=== PATIENT | male | born 1955 | race Caucasian/White ===

== ENCOUNTER 2017-04-16 08:50 | Emergency (ER) | payer OTHER ==
[2017-04-16 09:00] VITALS: RESP 16
--- NOTE | 2017-04-16 09:26 | EDPHY ---
H & P Time Seen by Provider: 04/16/17 09:01 HPI/ROS: Chief complaint. Vertigo HPI. 62-year-old male presents emergency department episodes of dizziness since February. He describes occasional spinning and sense of worse with movement of his head. Occasional nausea vomiting. He has had over the past month several episodes of this while in bed. He works as a [employer] and on Tuesday was under a piano an twisted and felt that his neck got quite tight. He had a chiropractic adjustment 2 days ago. This morning rolled over in bed and had dizziness that is worse with head position eyes open. His neck still feels tight. No headache. He is legally blind in his right eye. His mom had a brain tumor is concerned about this. ROS Constitutional. no fever/chills, no weakness Eyes. no problems with vision ENT. no sore throat, no nasal drainage Cardiovascular. no chest pain Respiratory. no shortness of breath, no cough Abdominal. no abdominal pain, no nausea/vomiting, no diarrhea . no problems urinating MS. neck tightness Skin. no rash Lymph. no swollen glands Neuro. Dizziness Past Medical/Surgical History: Healthy Social History: , nonsmoker, no alcohol Smoking Status: Never smoked Physical Exam: General Appearance: Alert well-developed male mild distress vitals are stable Eyes: Pupils equal round reactive. No nystagmus. ENT, tympanic membranes normal. Pharynx normal Respiratory: There are no retractions, lungs are clear to auscultation. Cardiovascular: Regular rate and rhythm. Gastrointestinal: Abdomen is soft and nontender, no masses, bowel sounds normal. Neurological: Awake and alert, sensory and motor exams grossly normal. Skin: Warm and dry, no rashes. Musculoskeletal: Neck is supple nontender. Extremities symmetrical, full range of motion. Psychiatric: Patient is oriented X 3, there is no agitation. Constitutional: Initial Vital Signs Temperature (C) 36.6 C 04/16/17 08:55 Heart Rate 85 04/16/17 08:55 Respiratory Rate 16 04/16/17 08:55 Blood Pressure 155/98 H 04/16/17 08:55 O2 Sat (%) 97 04/16/17 08:55 O2 Delivery Mode Room Air Allergies/Adverse Reactions: No Known Allergies Allergy (Unverified 04/16/17 09:00) Home Medications: Medication Instructions Recorded Meclizine HCl [Meclizine HCl 25 mg 25 mg PO TID PRN #14 tab 04/16/17 (RX,OTC)] Medical Decision Making - Diagnostics Imaging Results: Imaging Impressions Head CT 04/16/17 09:50 Impression: 1. No significant intracranial abnormality seen. Head CT shows no evidence of bleeding or tumor. CT angiogram of head and neck reviewed by me and discussed with Dr. Hilario shows no dissection or abnormality Procedures: IV normal saline. Meclizine by mouth ED Course/Re-evaluation: Re-evaluation 12:40 p.m.. Patient is stable. His symptoms have resolved. He is neurologically intact. The patient, his , and I discussed discussed lab , EKG, imaging results. We discussed treatment plan including criteria for return and importance of follow-up and further evaluation. They expressed understanding and agreement Differential Diagnosis: This appears to be peripheral vertigo. He has had chiropractic manipulation with some neck discomfort and I considered carotid and vertebral artery dissections. I considered CVA as well. - Data Points Laboratory Results: Laboratory Results 04/16/17 10:03 04/16/17 10:03 04/16/17 04/16/17 04/16/17 10:03 10:03 10:03 WBC 4.03 10^3/uL 10^3/uL (3.80-9.50) RBC 5.41 10^6/uL 10^6/uL (4.40-6.38) Hgb 16.7 g/dL g/dL (13.7-17.5) Hct 47.0 % % (40.0-51.0) MCV 86.9 fL fL (81.5-99.8) MCH 30.9 pg pg (27.9-34.1) MCHC 35.5 g/dL g/dL (32.4-36.7) RDW 13.1 % % (11.5-15.2) Plt Count 180 10^3/uL 10^3/uL (150-400) MPV 9.0 fL fL (8.7-11.7) Neut % (Auto) 59.4 % % (39.3-74.2) Lymph % (Auto) 29.3 % % (15.0-45.0) [place] % (Auto) 8.4 % % (4.5-13.0) Eos % (Auto) 1.5 % % (0.6-7.6) Baso % (Auto) 1.2 % % (0.3-1.7) Nucleat RBC Rel Count 0.0 % % (0.0-0.2) Absolute Neuts (auto) 2.39 10^3/uL 10^3/uL (1.70-6.50) Absolute Lymphs (auto) 1.18 10^3/uL 10^3/uL (1.00-3.00) Absolute Monos (auto) 0.34 10^3/uL 10^3/uL (0.30-0.80) Absolute Eos (auto) 0.06 10^3/uL 10^3/uL (0.03-0.40) Absolute Basos (auto) 0.05 10^3/uL 10^3/uL (0.02-0.10) Absolute Nucleated RBC 0.00 10^3/uL 10^3/uL (0-0.01) Immature Gran % 0.2 % % (0.0-1.1) Immature Gran # 0.01 10^3/uL 10^3/uL (0.00-0.10) PT 13.7 SEC SEC (12.0-15.0) INR 1.06 (0.83-1.16) Sodium 140 mEq/L mEq/L (134-144) Potassium 4.2 mEq/L mEq/L (3.5-5.2) Chloride 109 mEq/L mEq/L (97-110) Carbon Dioxide 20 mEq/l L mEq/l (22-31) Anion Gap 11 mEq/L mEq/L (8-16) BUN 18 mg/dL mg/dL (7-23) Creatinine 0.8 mg/dL mg/dL (0.7-1.3) Estimated GFR > 60 Glucose 96 mg/dL mg/dL (70-100) Calcium 9.1 mg/dL mg/dL (8.5-10.4) Troponin I < 0.012 ng/mL ng/mL (0.000-0.034) Medications Given: Discontinued Medications Sodium Chloride (Ns) 1,000 mls @ 0 mls/hr IV ONCE ONE; Wide Open PRN Reason: Protocol Stop: 04/16/17 09:50 Last Admin: 04/16/17 10:16 Dose: 1,000 mls Meclizine HCl (Meclizine Hcl) 25 mg PO EDNOW ONE Stop: 04/16/17 09:52 Last Admin: 04/16/17 10:16 Dose: 25 mg Departure - Departure Disposition: Home, Routine, Self-Care Clinical Impression: Vertigo Condition: Good Instructions: Vertigo (ED) Additional Instructions: Meclizine as needed for dizziness. You may review the Eppley maneuver on Youtube to help with vertigo. Return for worsening symptoms. Follow up with ENT. Referrals: Alonso العراقي MD [Primary Care Provider] - As per Instructions Macarena Santo MD [Medical Doctor] - 2-3 days, call for appt. Prescriptions: Meclizine HCl [Meclizine HCl 25 mg (RX,OTC)] 25 mg PO TID PRN #14 tab PRN Reason: Dizziness
[2017-04-16] MEDS ORDERED: NS 1,000 ML IV ONE (09:49)
[2017-04-16] MEDS ORDERED: MECLIZINE HCL 25 MG TAB PO ONE (09:51)
--- NOTE | 2017-04-16 10:20 | CPEKG ---
Heart Rate: 68 RR Interval: 882 P-R Interval: 200 QRSD Interval: 82 QT Interval: 380 QTC Interval: 405 P [place]: -12 QRS [place]: 7 T Wave [place]: 18 EKG Severity - NORMAL ECG - EKG Impression: SINUS RHYTHM Electronically Signed By: Farhad Underwood 16-Apr-2017 15:15:50
--- NOTE | 2017-04-16 10:20 | CPEKG ---
Heart Rate: 68 RR Interval: 882 P-R Interval: 200 QRSD Interval: 82 QT Interval: 380 QTC Interval: 405 P [place]: -12 QRS [place]: 7 T Wave [place]: 18 EKG Severity - NORMAL ECG - EKG Impression: SINUS RHYTHM Electronically Signed By: Farhad Underwood 16-Apr-2017 15:15:50
[2017-04-16 10:21] LABS: PLATELET COUNT 180 10^3/uL (150-400)
[2017-04-16 10:36] LABS: INR 1.06 (0.83-1.16); PROTIME(PATIENT) 13.7 SEC (12.0-15.0)
[2017-04-16] MEDS ORDERED: IOPAMIDOL (ISOVUE 370) 100 ML BTL IV ONE (10:46)
[2017-04-16 13:09] VITALS: BP 129/82; PULSE 78; TEMP 98.4; O2SAT 97
== END 2017-04-16 13:09 | disposition home or self-care (01) ==
PROC: 3E0337Z Introduction of Electrolytic and Water Balance Substance into Peripheral Vein, Percutaneous Approach (ICD-10-PCS; principal; 2017-04-16)
DX: R42 Dizziness and giddiness (principal); E86.9 Volume depletion, unspecified
CPT/HCPCS: Q9967

== ENCOUNTER 2017-10-14 16:16 | Emergency (ER) | payer OTHER ==
[2017-10-14] MEDS ORDERED: LET GEL TOPICAL 1 EA SYR TP ONE (16:29)
[2017-10-14] MEDS ORDERED: TDAP ADULT 0.5 ML INJ (BOOSTRIX) IM ONE (16:30)
[2017-10-14] MEDS ORDERED: TETANUS, DIPHTHERIA TOX (7YR+) 0.5 ML INJ IM ONE (16:38)
--- NOTE | 2017-10-14 17:21 | EDPHY ---
H & P Time Seen by Provider: 10/14/17 16:38 HPI/ROS: 62-year-old male presents complaining of puncture wound to his right hand while working on his deck with a drill bit with a screw. This happened approximately 8 hr ago, immediately after the injury he washed it out with alcohol. He complains of pain in his hand at the site of injury otherwise is has no complaints. Review of systems As per HPI General no fever no chills no weakness HEENT no eye pain no eye discharge. 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 He is right-hand dominant Smoking Status: Never smoked Physical Exam: 62-year-old male Alert and oriented in no acute distress nontoxic appearance, afebrile Atraumatic normocephalic Neck no JVD Lungs clear to auscultation, no respiratory distress Heart regular rate and rhythm Extremities no cyanosis clubbing edema Right hand no discoloration puncture wound a just lateral to right 2nd mcp, 2mm in diameter from all digits, good cap refill, no palmar swelling able to oppose thumb and little finger strong sleeve setter safety stitch Constitutional: Initial Vital Signs Temperature (C) 36.8 C 10/14/17 16:20 Heart Rate 83 10/14/17 16:20 Respiratory Rate 16 10/14/17 16:20 Blood Pressure 141/87 H 10/14/17 16:20 O2 Sat (%) 95 10/14/17 16:20 O2 Delivery Mode Room Air Allergies/Adverse Reactions: No Known Allergies Allergy (Verified 10/14/17 16:19) Home Medications: Medication Instructions Recorded Amoxicillin/Clavulanate Pot 875 mg PO BID #14 tab 10/14/17 [Augmentin 875 MG TAB (*)] Medical Decision Making - Diagnostics Imaging Results: Imaging Impressions Hand X-Ray 10/14/17 16:52 Impression: No bone or joint involvement identified. ED Course/Re-evaluation: Pt seen and evaluated for puncture wound to the right hand, his dominant hand. X-ray Negative for fracture , negative for foreign body, negative for soft tissue swelling Impression Right hand puncture wound Plan Wound care provided Tetanus Augmentin 875 p. O. Twice daily x7 days Follow-up with Hand surgery Dr. Leonardo Return for any signs of infection. Differential Diagnosis: Differential diagnosis considered but not limited to and in no particular order: Metacarpal fracture, puncture wound, retained foreign body, hand tendon injury, laceration, crush injury - Data Points Medications Given: Discontinued Medications Diphtheria/Tetanus/Acell Pertussis (Boostrix) 0.5 ml IM .ONCE ONE Stop: 10/14/17 16:31 Last Admin: 10/14/17 16:47 Dose: Not Given Tetanus/Diphtheria Toxoids Adsorbed (Tetanus-Diphtheria Grifols) 0.5 ml IM .ONCE ONE Stop: 10/14/17 16:39 Last Admin: 10/14/17 16:44 Dose: 0.5 ml Tetracaine/Epinephrine/Lidocaine (Let Gel Topical) 1 ea TP EDNOW ONE Stop: 10/14/17 16:30 Last Admin: 10/14/17 16:47 Dose: 1 ea Departure - Departure Disposition: Home, Routine, Self-Care Clinical Impression: Puncture wound of right hand with foreign body Condition: Good Instructions: Amoxicillin/Clavulanate Potassium (By mouth), Puncture Wound (ED) Referrals: Alonso العراقي MD [Primary Care Provider] - As per Instructions Edilberto Leonardo MD [Medical Doctor] - As per Instructions Prescriptions: Amoxicillin/Clavulanate Pot [Augmentin 875 MG TAB (*)] 875 mg PO BID #14 tab
[2017-10-14 17:59] VITALS: BP 149/83
== END 2017-10-14 17:40 | disposition home or self-care (01) ==
LOC: CED 16:16
DX: S61.441A Puncture wound with foreign body of right hand, initial encounter (principal); Z23 Encounter for immunization; W29.8XXA Contact with other powered hand tools and household machinery, initial encounter; Y92.69 Other specified industrial and construction area as the place of occurrence of the external cause
CPT/HCPCS: 73130-PO